=== PATIENT | male | born 1985 | race Two or more races ===

== ENCOUNTER → 2023-07-09 | Emergency (ER) | payer OTHER ==
[~2023-07-09] VITALS: Ht 182.9 cm; Wt 101.2 kg
[2023-07-09 15:48] LABS: HEMATOCRIT 43.8 % (39.0-48.0); HEMOGLOBIN 14.8 g/dL (13-16.00); MEAN CELL VOLUME 83.4 fL (80.0-100.00); MEAN CORPUSCULAR HEMOGLOBIN 28.3 pg (27.00-32.0); MEAN CORPUSCULAR HGB CONC 33.9 g/dl (32.0-36.0); PLATELET COUNT 341 K/uL (150-450); RED BLOOD COUNT 5.25 M/uL (4.00-6.00); RED CELL DISTRIBUTION WIDTH 14.3 % (11.5-14.5)
[2023-07-09 16:18] LABS: ALBUMIN 3.8 gm/dL (3.4-5.0); BILIRUBIN TOTAL 0.26 mg/dL (0.3-1.2); CALCIUM 9.4 mg/dL (8.5-10.1); CREATININE SERUM 1.29 mg/dL (0.70-1.30); GFR 63.02; GLOBULINA 3.6 G/DL (2.4-3.5); POTASSIUM 4.61 mEq/L (3.5-5.1); TOTAL PROTEIN 7.4 gm/dL (6.4-8.2)
[2023-07-09 16:24] LABS: INR 1.03; PARTIAL THROMBOPLASTIN TIME 23.9 SECONDS (22.0-34.0); PROTHROMBIN TIME 10.8 SECONDS (9.0-11.5)
[2023-07-09 16:39] LABS: URINE APPEARANCE Clear; URINE BILIRRUBIN Negative (NEGATIVE); URINE BLOOD Negative; URINE COLOR Yellow; URINE GLUCOSE Negative (NEGATIVE); URINE LEUKOCYTE Negative; URINE NITRATE Negative; URINE PROTEIN 30 (NEGATIVE); URINE UROBILINOGEN 0.2 E.U./dl
[2023-07-09 16:43] LABS: URINE BACTERIA 105.8 uL (0.0-1933); URINE EPITHELIAL CELLS 12.2 uL (0.0-38.8); URINE WBC 8.6 uL (0.0-23.2)
[2023-07-09 16:52] LABS: URINE RBC 1.7 uL (0.0-20.8)
[2023-07-09 18:00] LABS: ABG PH 7.405 (7.35-7.45); ABG PO2 129.7 mmHg (80-100); ABG pCO2 28.9 mmHg (35-45); BASE EXCESS -5.5 mmol/l; BICARBONATE 17.7 mmol/l (23-25); SaO2 98.9 %; Tco2 18.6 mmol/l; allen test SATISFACTORY; o2 32 %; puncture site RADIAL RIGHT
== END | disposition left against medical advice (07) ==
LOC: ER 14:26
PROVIDERS: General Practice
DX: R52 Pain, unspecified (principal); T75.1XXA Unspecified effects of drowning and nonfatal submersion, initial encounter; Y84.4 Aspiration of fluid as the cause of abnormal reaction of the patient, or of later complication, without mention of misadventure at the time of the procedure; Z88.0 Allergy status to penicillin